=== PATIENT | male | born 1970 | race Caucasian/White ===

== ENCOUNTER 2024-05-19 16:16 | Emergency (ER) | payer BC, SELFPAY ==
[2024-05-19 16:26] VITALS: BP 150/95
[2024-05-19 16:46] LABS: % Basophils 1.6 % (0-2); % Eosinophils 3.7 % (0-6); % Immature Granulocytes 0.7 % (0-0.5); % Lymphocytes 21.6 % (20.5-51.1); % Monocytes 9.4 % (1.7-9.3); Absolute Basophils 0.1 10^3/uL (0-0.2); Absolute Eosinophils 0.3 10^3/uL (0-0.7); Absolute Immature Granulocytes 0.1 10^3/uL (0-0.05); Absolute Lymphocytes 1.5 10^3/uL (1.2-3.4); Absolute Monocytes 0.7 10^3/uL (0.1-0.6); Absolute Neutrophils 4.5 10^3/uL (1.4-6.5); Hemoglobin 17.6 g/dL (13.0-18.0); Mean Corp Hgb Conc. 36.7 g/dL (33.0-37.0); Mean Corpuscular Hgb 28.6 pg (27.0-31.0); Mean Platelet Volume 8.7 fL (7.4-10.4); Nucleated Red Blood Cells % 0 % (-); Platelet Count 161 10^3/uL (130-400); Red Blood Cell Count 6.15 10^6/uL (4.70-6.10); Red Cell Dist. Width 12.3 % (11.5-14.5); White Blood Cell Count 7.1 10^3/uL (4.8-10.8)
[2024-05-19 16:48] VITALS: BP 122/94
[2024-05-19 16:49] VITALS: BMI 38.0
[2024-05-19 16:56] LABS: ALT (SGPT) 41 U/L (0-50); AST (SGOT) 34 U/L (17-59); Albumin 4.7 g/dl (3.5-5.0); Alkaline Phosphatase 77 U/L (38-126); Blood Urea Nitrogen 15 mg/dl (9-20); Calcium 9.5 mg/dl (8.4-10.2); Carbon Dioxide 25 mmol/L (22-30); Chloride 103 mmol/L (98-107); Estimated Creatinine Clearance > 125 ml/min; Glucose 130 mg/dl (70-99); Potassium 4.2 mmol/L (3.5-5.1); Sodium 138 mmol/L (135-145); Total Bilirubin 2.6 mg/dl (0.2-1.3); Total Protein 7.5 g/dl (6.3-8.2); eGFR > 60.00
--- NOTE | 2024-05-19 17:19 | ED.GENMED ---
History of Present Illness
General
Chief Complaint: Breathing Problem
Source: patient
Exam Limitations: none
Time Seen by Provider: 05/19/24 17:05
History of Present Illness
History of Present Illness:
This is a pleasant 54-year-old male that presents with cough, with hemoptysis that was present this morning. Patient has been having shortness of breath and fatigue. He states that last evening he went to bed at 5 PM and with a few interruptions
awakened at 6 AM feeling much better. Patient had COVID 1 month ago. After the symptoms of a cough and the fatigue patient went to urgent care this evening. He got a chest x-ray and was told he had right lower lobe pneumonia. He was sent to the
emergency department. He brought the CD.
Past History
Past History
ED Past Medical History: Asthma, HTN, IDDM, Hypothyroidism and Other (obesity, MAGDALENA noncmpl w/CPAP)
ED Past Surgical History: Orthopedic
Social History
Tobacco: Non-smoker
Alcohol: Occasional
Drug: None
Personal:
Living: with family
Employment: Employed
Family History
Family History: Hypertension
Review of Systems
Review of Systems
Allergies reviewed?: Yes
All Other Systems: ROS reviewed and negative except as documented in HPI and ROS
Constitutional: Reports no symptoms
EENT: Reports no symptoms
Respiratory: Reports cough; Denies trouble breathing
Cardiac: Denies chest pain
ABD/GI: Reports no symptoms
: Reports no symptoms
Musculoskeletal: Reports no symptoms
Skin: Reports no symptoms
Neurological: Reports no symptoms
Endocrine: Reports no symptoms
Hematologic/Lymphatic: Reports no symptoms
Psychiatric: Reports no symptoms
Phy Exam
General Physical Exam
General Presentation: well appearing and no apparent distress
General Skin: warm and dry
General Habitus: normal
General Mental: alert
General Hydration: appears well hydrated
ENT Exam
ENT Exam: EOMI, pharynx normal, neck supple and normocephalic
Eye Exam
Eye Exam: PERRL, cornea clear and conjunctiva normal
Cardiovascular Exam
Cardiovascular Exam: regular rate/rhythm, no edema, no murmur and normal peripheral pulses
Pulmonary Exam
Pulmonary Exam: lungs clear, no respiratory distress, no rales, no crackles, no rhonchi, no stridor, no wheezing and no cough
Gastrointestinal Exam
Gastrointestinal Exam: normal bowel sounds, non tender, soft, no organomegaly, no pulsatile mass and non distended
Neurological Exam
Neurological Exam: alert, oriented x3, no motor deficits and speech normal
Musculoskeletal Exam
Musculoskeletal Exam: full ROM and no edema
Skin Exam
Skin Exam: normal color, warm/dry, no rash and no petechia
Psychiatric Exam
Psychiatric Exam: normal mood/affect
Scores
Heart Failure Risk
Heart Failure Risk Score: Not Applicable
Course
Orders/Labs/Results
Orders:
Orders
05/19/24 16:36
Complete Blood Count/With Diff Urgent
Comprehensive Metabolic Panel Urgent
05/19/24 17:06
CT Chest Pe Study Urgent
Comment:
Reason For Exam: Hemoptysis dyspnea
05/19/24 17:17
Prothrombin Time Urgent
05/19/24 19:29
Amoxicillin [Amoxil] 1,000 mg PO NOW STA
05/19/24 19:33
Dexamethasone Sod Phosphate [Decadron] 10 mg IV NOW STA
Abnormal Lab Results
05/19/24
16:36
RBC 6.15 H 10^6/uL
(4.70-6.10)
MCV 78.0 L fL
(80.0-94.0)
Abs Immat Gran (auto) 0.1 H 10^3/uL
(0-0.05)
Absolute Monos (auto) 0.7 H 10^3/uL
(0.1-0.6)
Immature Gran % 0.7 H %
(0-0.5)
Monocytes % 9.4 H %
(1.7-9.3)
Glucose 130 H mg/dl
(70-99)
Total Bilirubin 2.6 H mg/dl
(0.2-1.3)
05/19/24 16:36
05/19/24 16:36
Vital Signs
Initial and Last Documented VS:
Initial Vital Signs
Temp Pulse Resp BP Pulse Ox
98.1 F 111 18 150/95 97
05/19/24 16:26 05/19/24 16:26 05/19/24 16:26 05/19/24 16:26 05/19/24 16:26
Last Documented Vital Signs
Temp Pulse Resp BP Pulse Ox
98.1 F 111 18 125/85 91
05/19/24 16:26 05/19/24 16:26 05/19/24 16:26 05/19/24 19:00 05/19/24 18:44
*Radiology
Radiology exam reviewed: radiology read reviewed
*Ear Nose Throat Physician Interpretation
Rate: normal
*Critical Care Note
Total Time (30-74mins, 75-104mins- exclusive of procedures): Not Applicable
Update Note
Update Note:
Patient given a copy of his CT report. He will follow-up with his family doctor for repeat imaging as needed.
ED Attending Note
-
Portions of this chart may have been created with voice recognition software.� Occasional wrong word or��sound alike� substitutions may have occurred due to the inherent limitations of voice recognition software.
Discharge Plan
Departure
Patient Disposition: Home (Routine Discharge)
Date of Disposition: 05/19/24
Time of Disposition: 19:29
Patient with high blood pressure during this ER visit?: Yes
Condition: Good
Discharge Problem:
Pneumonia
Instructions: BLOOD PRESSURE, Pneumonia
Prescriptions:
New
amoxicillin 500 mg capsule
1,000 mg PO Q12H Qty: 10 0RF
No Action
metformin 500 MG tablet extended release 24 hr
1,000 mg PO BID
levothyroxine 100 MCG tablet
100 mcg PO DAILY
losartan 100 MG tablet
100 mg PO DAILY
insulin glargine [Basaglar KwikPen U-100 Insulin] 100 UNIT/ML insulin pen
10 unit SQ HS
insulin aspart (niacinamide) [Fiasp FlexTouch U-100 Insulin] 100 UNIT/ML insulin pen
4 unit SQ .BEFORE MEALS
amoxicillin-pot clavulanate 875-125 mg tablet
1 tab PO BID Qty: 14 0RF
Referrals:
Kourtney Carson DO [Family Provider] -
Activity Restrictions/Additional Instructions:
Your prescriptions were sent electronically to the pharmacy that you specified.
It was a pleasure meeting you and taking part in your care. We hope for your continued healing and wellness.
Please read discharge instructions in their entirety. However, they are for general education and may not describe your exact diagnosis at discharge. Information on your ER visit and medical conditions were discussed with you along with appropriate
follow up information...
If indicated, please take your medications as instructed and indicated on discharge paperwork.
Please schedule a follow up appointment as directed. Call to schedule an appointment
Please return to the emergency department with ANY change in, persisting, or worsening of symptoms. If any of your symptoms do not improve, or persist, or become more severe within 6-12 hours, please return to the emergency department for further
care.
Please return to the emergency department if you develop a headache, neck pain/stiffness, fever greater than 100.4F, chest pain, shortness of breath, persistent nausea, vomiting, slurred speech, difficulty walking, numbness/tingling, weakness, signs
of infection or any other symptoms that are worrisome to you.
If you have any questions or concerns please do not hesitate to call the Hospital at or E-mail me directly at [email or web address]
Interventions
Interventions:
*Risk Screen - Suicide Last Done: 05/19/24 16:26
*General Assessment Last Done: 05/19/24 16:26
*Neglect/Abuse Screening Last Done: 05/19/24 16:26
ED- Fall Risk Assessment Last Done: 05/19/24 16:50
*ED COVID-19 Vaccine History Last Done: 05/19/24 16:50
*Nursing Disposition Last Done: 05/19/24 19:51
ED- Cardiac Assessment Last Done: 05/19/24 16:50
ED- Pulmonary Assessment Last Done: 05/19/24 16:50
Discharge Date and Time
Discharge Date/Time: 05/19/24 19:52
Print Language: [place]AP[place]
[2024-05-19 17:32] LABS: INR 1.13; PT 14.3 Sec (11.4-14.6)
[2024-05-19 18:39] VITALS: BP 120/81
[2024-05-19 19:00] VITALS: BP 125/85
[2024-05-19] MEDS: AMOXIL 1000 MG PO (19:33)
[2024-05-19] MEDS: DECADRON 10 MG IV (19:38)
== END 2024-05-19 19:52 | disposition home or self-care (01) ==
LOC: EMR 16:16
PROVIDERS: Emergency Medicine; EMERGENCY PHYSICIAN Student in an Organized Health Care Education/Training Program; FAMILY PHYSICIAN Family Medicine
DX: J18.9 Pneumonia, unspecified organism (principal); J45.909 Unspecified asthma, uncomplicated; I10 Essential (primary) hypertension; E11.9 Type 2 diabetes mellitus without complications; E03.9 Hypothyroidism, unspecified; E66.9 Obesity, unspecified; G47.33 Obstructive sleep apnea (adult) (pediatric); Z82.49 Family history of ischemic heart disease and other diseases of the circulatory system
CPT/HCPCS: 99284; 96374; 71275; 80053; 85025; 85610; Q9967

== ENCOUNTER → 2025-10-08 11:11 | Outpatient (REF) | payer BC, SELFPAY | LOC: RAD 11:11 | PROVIDERS: ATTENDING PHYSICIAN Student in an Organized Health Care Education/Training Program; FAMILY PHYSICIAN Family Medicine | DX: Z12.5 Encounter for screening for malignant neoplasm of prostate (principal) | CPT/HCPCS: 74178; Q9967 ==

== ENCOUNTER 2025-10-20 06:22 | Day surgery (SDC) | payer BC, SELFPAY ==
[2025-10-17 14:02] VITALS: BMI 36.9
[2025-10-17 14:33] LABS: Hematocrit 47.0 % (39.0-52.0); Hemoglobin 16.7 g/dL (13.0-18.0); Mean Corp Hgb Conc. 35.5 g/dL (33.0-37.0); Mean Corpuscular Volume 80.2 fL (80.0-94.0); Platelet Count 179 10^3/uL (130-400); Red Cell Dist. Width 12.2 % (11.5-14.5)
[2025-10-17 14:57] LABS: Blood Urea Nitrogen 13 mg/dl (9-20); Calcium 9.1 mg/dl (8.4-10.2); Carbon Dioxide 29 mmol/L (22-30); Chloride 100 mmol/L (98-107); Estimated Creatinine Clearance > 125 ml/min; Glucose 111 mg/dl (70-99); Potassium 4.0 mmol/L (3.5-5.1); Sodium 134 mmol/L (135-145); eGFR > 60.00
[2025-10-20] VITALS (7 sets, daily range): BP systolic 131–156; BP diastolic 79–98; BMI 36.9
[2025-10-20 12:45] LABS: Glucose - Point of Care 137 mg/dl (70-99)
[2025-10-20] MEDS: NORMOSOL-R/PLASMALYTE-A 1000 IV (12:53)
[2025-10-20 14:49] LABS: Glucose - Point of Care 123 mg/dl (70-99)
[2025-10-20 16:28] LABS: Glucose - Point of Care 134 mg/dl (70-99)
--- NOTE | 2025-10-20 16:30 | OR.RPT ---
Addendum entered and electronically signed by Magalis Leija MD 10/21/25 13:46:
Date of procedure: 10/20/2025
Original Note:
Operative Report
Operative Report
PREOPERATIVE DIAGNOSIS: Bladder tumor
POSTOPERATIVE DIAGNOSIS: Bladder tumor
PROCEDURE:
1. Transurethral resection of bladder tumor, medium
2. Bilateral retrograde pyelogram with intraoperative interpretation
3. Right ureteral stent placement
SURGEON: Magalis Leija MD
DESKTOP OPERATOR: None.
ANESTHESIA: GET
COMPLICATIONS: None.
EBL: 5cc.
DRAINS:
1. 6-Uzbek x 26 cm Tria Firm right ureteral stent
2. 20-Uzbek izquierdo catheter
SPECIMENS:
INTRAOPERATIVE FINDINGS:
1. Cystourethroscopy revealed a normal anterior urethra. The prostate had evidence of lateral lobe hypertrophy with a high bladder neck.
2. On entering the bladder we noted an approximately 3.5 cm bladder tumor surrounding the right ureteral orifice and extending laterally as well as towards the midline. The tumor appeared somewhat high-grade appearing with white thin tissue atop the
mass. There was significant surrounding vascularity to the tumor. The ureteral orifice was uninvolved with tumor and the ureteral orifices were in orthotopic position bilaterally. The left ureteral orifice was somewhat raised but no overt tumor was
identified. There were moderate bladder trabeculations. All tumor was resected.
3. Bilateral retrograde pyelogram revealed no ureteral filling defects and no hydroureteronephrosis.
INDICATIONS FOR PROCEDURE: The patient is a 55 year old male with new onset gross hematuria and sediment/mucus in his urine who was subsequently diagnosed with a right lateral wall ~3 cm bladder tumor on CT Urogram and confirmed on office
cystoscopy. The patient elected to proceed with the above named procedure after reviewing the risks, benefits, and alternatives.
DESCRIPTION OF PROCEDURE:
The patient was identified by name and medical record number in the preoperative holding area. The patient was brought to the operating room and placed supine on the operating room table. Preoperative antibiotics of ancef were
administered. General anesthesia was induced without incident. The patient was placed in dorsal lithotomy position with care to pad all pressure points. They were prepped and draped in a standard sterile fashion. A time out was performed and all
were in agreement with the above-named procedure.
We began by inserting a 26 Uzbek resectoscope per urethra. Cystoscopic findings are noted above. Next, using a bipolar loop, we resected the bladder tumor down to the level of visible muscle fibers. No overt muscle invasion was noted. We resected
abnormal appearing tissue that extended medially towards midline. All specimens were evacuated and sent for pathology. We then exchanged the resectoscope for a cystoscope and performed bilateral retrogrades using a 5-Uzbek ureteral catheter.
Findings noted above. A 0.035 Sensor wire was placed via the right ureteral orifice easily to the right renal pelvis confirmed on fluoroscopy. Next under direct vision, a 6-Uzbek x 26 cm Tria Firm ureteral stent was placed with an excellent curl in
the right upper pole and distal curl visualized in the bladder. The resectoscope was then re-introduced and adequate hemostasis was obtained. The bladder was re-inspected under low pressures and noted to be hemostatic. A 20 Uzbek izquierdo catheter was
placed with 10 cc in the balloon with return of pink urine.
The patient was then cleaned of prep, returned to supine position, awoken from anesthesia, and transported to the post-operative area in stable condition.
== END 2025-10-20 17:45 | disposition home or self-care (01) ==
LOC: SDS 06:22
PROVIDERS: ATTENDING PHYSICIAN Student in an Organized Health Care Education/Training Program; FAMILY PHYSICIAN Family Medicine
DX: C67.9 Malignant neoplasm of bladder, unspecified (principal)
CPT/HCPCS: 52235; 52332; 74018; 76000; 80048; 82962; 85027; 88307; 88341; 88342; 93005; A4300; C1758

== ENCOUNTER 2025-11-18 06:23 | Day surgery (SDC) | payer BC, SELFPAY ==
[2025-11-18 12:36] LABS: Glucose - Point of Care 130 mg/dl (70-99)
== END 2025-11-18 13:59 | disposition home or self-care (01) ==
LOC: GI 06:23
PROVIDERS: ATTENDING PHYSICIAN Surgery
DX: Z12.11 Encounter for screening for malignant neoplasm of colon (principal); K57.30 Diverticulosis of large intestine without perforation or abscess without bleeding; Z86.0101 Personal history of adenomatous and serrated colon polyps
CPT/HCPCS: G0105; 82962